=== PATIENT | female | born 1960 | race Caucasian/White ===

== ENCOUNTER → 2017-04-23 | Outpatient (CLI) | payer MEDICARE, MEDICAID ==
[~2017-04-23] MED LIST: ADVAIR 10028 PUFF/IN IN; ALBUTEROL0.09 MG/Ac IH; ALLERGY10 M1 PO; ALLERGY10 MG PO; AMITRIPTYLINE10 M1 FT; APAP/BUTALBITAL1 TA1 PO; ASPIRIN 81MG TA81 MG PO; ATENOLOL50 MG PO; CELEXA20 MG PO; CYMBALTA60 M1 PO; DICLOFENAC 50MG50 MG PO; DULERA1 AR1 IH; EAR DROPS15 ML OT; GABAPENTIN300 MG PO; ISOSORBIDE DINIT5 MG SL; LEVOTHYROXINE0.05 MG PO; LISINOPRIL 5MG T5 MG NG; LOPID 600MG TA600 MG OR; LORTAB 5/500 501 TAB PO; MASON NATURAL1200 MG PO; MAXZIDE1 TAB PO; MEDROL 4MG. DOSE4 MG PO; NAPROSYN500 M1 PO; NASONEX0.05 MG/AC; NEXIUM40 MG; NEXIUM40 MG PO; NORTRIPTYLINE PO; PERCOCET1 TAB PO; PRAVASTATIN 40M40 MG PO; PREDNISONE 20MG20 MG PO; PREMARIN1.25 MG PO; PROTONIX 40MG T40 MG PO; PROVENTIL0.09 MG/AC IH; ROBAXIN-750750 MG PO; SINGULAIR 10 MG10 MG PO; SYMBICORT1 AE1 IH; TOPAMAX100 MG PO; TOPAMAX200 MG PO; WELLBUTRIN 100100 M1 PO; XANAX 1MG TABLET1 MG PO; ZANTAC 150150 MG PO; ZITHROMAX Z-PA250 M2 PO; ZOFRAN ODT8 MG PO
[2017-04-23 14:02] LABS: AMPHETAMINES/METAMPHETAMINES NEGATIVE ng/mL (<1000)
== END ==
LOC: LAB 12:57
PROVIDERS: Emergency Medicine
DX: Z79.899 Other long term (current) drug therapy (principal)